=== PATIENT | female | born 1990 | race African-American/Black ===

== ENCOUNTER 2019-01-23 15:50 | Emergency (ER) | payer OTHER ==
[2019-01-23] MEDS ORDERED: LIDOCAINE 1% MPF 5 ML VIAL ONE (16:33)
--- NOTE | 2019-01-23 16:45 | EDPHYS ---
Physician Documentation [facility] Name: Althea Ramirez Age: 28 yrs Sex: Female : 1990 Arrival Date: 01/23/2019 Time: 15:51 Bed 19 Private MD: Unknown, Unknown ED Physician Adalberto Romero HPI: 01/23 16:20 This 28 yrs old Black Female presents to ER via Ambulatory with complaints of kb Laceration To Hand. 16:20 The patient has a laceration related to: cutting ziptie with knife occurred at work, kb and there are no complicating factors. The injury was accidental. The laceration(s) is(are) located on the dorsum of left hand. Onset: The symptoms/episode began/occurred 1 hour(s) ago. Associated signs and symptoms: Pertinent positives: heavy bleeding, Pertinent negatives: deformity, dizziness, loss of consciousness, numbness distal to injury, suspected foreign body. The patient has not experienced similar symptoms in the past. The patient has not recently seen a physician. Historical: - Allergies: 16:07 No Known Allergies; ss - Home Meds: 16:07 None [Active]; ss - PMHx: 16:07 None; ss - PSHx: 16:07 None; ss - Immunization history:: Adult Immunizations up to date. - Social history:: Smoking status: Patient uses tobacco products, smokes one-half pack cigarettes per day. - Ebola Screening: : Patient denies exposure to infectious person Patient denies travel to an Ebola-affected area in the 21 days before illness onset. ROS: 16:17 Constitutional: Negative for fever, chills, and weight loss, Cardiovascular: Negative kb for chest pain, palpitations, and edema, Respiratory: Negative for shortness of breath, cough, wheezing, and pleuritic chest pain, Abdomen/GI: Negative for abdominal pain, nausea, vomiting, diarrhea, and constipation, Neuro: Negative for headache, weakness, numbness, tingling, and seizure. 16:17 Skin: Positive for laceration(s), of the dorsum of left hand. Exam: 16:17 Constitutional: This is a well developed, well nourished patient who is awake, alert, kb and in no acute distress. Head/Face: Normocephalic, atraumatic. Chest/axilla: Normal chest wall appearance and motion. Nontender with no deformity. No lesions are appreciated. Cardiovascular: Regular rate and rhythm with a normal S1 and S2. No gallops, murmurs, or rubs. Normal PMI, no JVD. No pulse deficits. Respiratory: Lungs have equal breath sounds bilaterally, clear to auscultation and percussion. No rales, rhonchi or wheezes noted. No increased work of breathing, no retractions or nasal flaring. Abdomen/GI: Soft, non-tender, with normal bowel sounds. No distension or tympany. No guarding or rebound. No evidence of tenderness throughout. MS/ Extremity: Pulses equal, no cyanosis. Neurovascular intact. Full, normal range of motion. Neuro: Awake and alert, GCS 15, oriented to person, place, time, and situation. Cranial nerves II-XII grossly intact. Motor strength 5/5 in all extremities. Sensory grossly intact. Cerebellar exam normal. Normal gait. 16:17 Skin: injury, laceration(s), the wound is approximately 3 cm(s), that can be described as clean, no foreign body, linear, without bleeding. Vital Signs: 16:07 BP 100 / 51; Pulse 81; Resp 14; Temp 99.1(TE); Pulse Ox 98% on R/A; Weight 56.7 kg; ss Height 5 ft. 1 in. (154.94 cm); Pain 10/10; 16:07 Body Mass Index 23.62 (56.70 kg, 154.94 cm) Laceration: 16:43 Wound Repair of 3cm ( 1.2in ) subcutaneous laceration to dorsum of left hand. Linear kb shaped.. Distal neuro/vascular/tendon intact. Anesthesia: Wound infiltrated with 4 mls of 1% lidocaine. Wound prep: Extensive cleansing with hibiclenz by nv, Wound irrigation with saline by nv. Skin closed with 5 5-0 Prolene using interrupted sutures and sterile technique. Dressed with Neosporin, non-adherent dressing. Patient tolerated well. MDM: 16:10 Patient medically screened. kb 16:17 Data reviewed: vital signs, nurses notes. Data interpreted: Pulse oximetry: on room air kb is 98 %. Interpretation: normal. Counseling: I had a detailed discussion with the patient and/or guardian regarding: the historical points, exam findings, and any diagnostic results supporting the discharge/admit diagnosis, the need for outpatient follow up, a family practitioner, to return to the emergency department if symptoms worsen or persist or if there are any questions or concerns that arise at home. 01/23 16:13 Order name: Prolene, Sutures; Complete Time: 16:16 kb 01/23 16:13 Order name: Dressing - Wound; Complete Time: 17:02 kb 01/23 16:13 Order name: Gloves, Sterile; Complete Time: 16:16 kb 01/23 16:13 Order name: Setup Suture Tray; Complete Time: 16:16 kb Administered Medications: 16:34 Drug: Lidocaine (1 %) 1 vials {Note: adminisitered by NELLY Sanchez.} Volume: 5 ml; em Route: Infiltration; Site: wound; 16:40 Follow up: Response: No adverse reaction; Pain is decreased em Disposition: 01/24 09:56 Co-signature as Attending Physician, Adalberto Romero MD I agree with the assessment and aniya plan of care. Disposition: 01/23/19 16:44 Discharged to Home. Impression: Laceration without foreign body of left hand. - Condition is Stable. - Discharge Instructions: Laceration Care, Adult, [id number]. - Medication Reconciliation Form, Thank You Letter, Antibiotic Education, Prescription Opioid Use, Work release form form. - Follow up: Emergency Department; When: As needed; Reason: Worsening of condition. Follow up: Private Physician; When: 2 - 3 days; Reason: Recheck today's complaints, Continuance of care, Re-evaluation by your physician. - Notes: Keep clean and dry Watch for signs of infection as discussed Have sutures removed in 10-14 days Signatures: Laura Smith, VOLUNTEER SPECIALIST-C VOLUNTEER SPECIALIST-Ckb Adalberto Romero MD MD cha Munoz, Edgar, MANAGER PEOPLE MANAGER PEOPLE Kandace Yee RN RN ss Corrections: (The following items were deleted from the chart) 01/23 17:04 16:44 01/23/2019 16:44 Discharged to Home. Impression: Laceration without foreign body em of left hand. Condition is Stable. Forms are Medication Reconciliation Form, Thank You Letter, Antibiotic Education, Prescription Opioid Use. Follow up: Emergency Department; When: As needed; Reason: Worsening of condition. Follow up: Private Physician; When: 2 - 3 days; Reason: Recheck today's complaints, Continuance of care, Re-evaluation by your physician. kb
--- NOTE | 2019-01-23 16:45 | ER ---
Nurse's Notes [facility] Name: Althea Ramirez Age: 28 yrs Sex: Female : 1990 Arrival Date: 01/23/2019 Time: 15:51 Bed 19 Private MD: Unknown, Unknown Diagnosis: Laceration without foreign body of left hand Presentation: 01/23 16:05 Presenting complaint: Patient states: Laceration to L hand sustained with knife while ss trying to cut zip ties. Transition of care: patient was not received from another setting of care. Complicating Factors: There are no complicating factors for this patient. Onset of symptoms was January 23, 2019. Risk Assessment: Do you want to hurt yourself or someone else? Patient reports no desire to harm self or others. Initial Sepsis Screen: Does the patient meet any 2 criteria? No. Patient's initial sepsis screen is negative. Does the patient have a suspected source of infection? No. Patient's initial sepsis screen is negative. Care prior to arrival: None. 16:05 Method Of Arrival: Ambulatory ss 16:05 Acuity: CHARMAINE 4 ss Historical: - Allergies: 16:07 No Known Allergies; ss - Home Meds: 16:07 None [Active]; ss - PMHx: 16:07 None; ss - PSHx: 16:07 None; ss - Immunization history:: Adult Immunizations up to date. - Social history:: Smoking status: Patient uses tobacco products, smokes one-half pack cigarettes per day. - Ebola Screening: : Patient denies exposure to infectious person Patient denies travel to an Ebola-affected area in the 21 days before illness onset. Screenin:19 Abuse screen: Denies threats or abuse. Nutritional screening: No deficits noted. em Tuberculosis screening: No symptoms or risk factors identified. Fall Risk None identified. Assessment: 16:20 General: Appears in no apparent distress. comfortable, Behavior is calm, cooperative. em Pain: Complains of pain in Left first web space Pain currently is 10 out of 10 on a pain scale. Neuro: Level of Consciousness is awake, alert, obeys commands, Oriented to person, place, time, situation. Cardiovascular: Capillary refill < 3 seconds Patient's skin is warm and dry. Respiratory: Airway is patent Respiratory effort is even, unlabored, Respiratory pattern is regular, symmetrical. Derm: Skin is intact, is healthy with good turgor, Skin is pink, warm \T\ dry. Musculoskeletal: Capillary refill < 3 seconds, Range of motion: intact in all extremities. Injury Description: Laceration sustained to dorsum of left hand is clean, 2.6 to 7.5 cm long, not bleeding, was sustained 30-60 minutes ago. is bleeding a small amount. 16:40 Reassessment: Patient appears in no apparent distress at this time. I agree with above iw assessment by Abhishek Brown LVN. Vital Signs: 16:07 BP 100 / 51; Pulse 81; Resp 14; Temp 99.1(TE); Pulse Ox 98% on R/A; Weight 56.7 kg; ss Height 5 ft. 1 in. (154.94 cm); Pain 10/10; 16:07 Body Mass Index 23.62 (56.70 kg, 154.94 cm) ED Course: 15:51 Patient arrived in ED. ag5 15:51 Unknown, Unknown is Private Physician. ag5 16:06 Triage completed. ss 16:07 Arm band placed on right wrist. ss 16:10 Laura Smith FNP-C is PHCP. kb 16:10 Adalberto Romero MD is Attending Physician. kb 16:13 Abhishek Brown LVN is Primary Nurse. em 16:19 Patient has correct armband on for positive identification. Placed in gown. Call light em in reach. 16:40 Assist provider with laceration repair on dorsum of left hand that was between 2.6 to em 7.5 cm using sutures. Set up tray. Performed by Laura SWIFT Dressed with 4X4s, Kerlix, Neosporin, Patient tolerated well. 17:04 Patient did not have IV access during this emergency room visit. em Administered Medications: 16:34 Drug: Lidocaine (1 %) 1 vials {Note: adminisitered by NELLY Sanchez.} Volume: 5 ml; em Route: Infiltration; Site: wound; 16:40 Follow up: Response: No adverse reaction; Pain is decreased em Outcome: 16:44 Discharge ordered by . kb 17:03 Discharged to home ambulatory. em 17:03 Condition: good 17:03 Discharge instructions given to patient, Instructed on discharge instructions, follow up and referral plans. Demonstrated understanding of instructions, follow-up care. 17:04 Patient left the ED. em Signatures: Laura Smith, CONSTRUCTION COORDINATOR-C CONSTRUCTION COORDINATOR-Abhishek Joseph, CASE LINER CASE LINER em Carmen An, RN RN Kandace Meyers RN RN Maria Elena Palacios ag5
== END 2019-01-23 17:04 | disposition home or self-care (01) ==
LOC: ER 15:50
PROC: 0JQK0ZZ Repair Left Hand Subcutaneous Tissue and Fascia, Open Approach (ICD-10-PCS; principal; 2019-01-23)
DX: S61.412A Laceration without foreign body of left hand, initial encounter (principal); W26.0XXA Contact with knife, initial encounter; F17.210 Nicotine dependence, cigarettes, uncomplicated
CPT/HCPCS: 99283